=== PATIENT | male | born 1995 | race Caucasian/White ===

== ENCOUNTER 2024-06-29 12:26 | Emergency (ER) | payer SELFPAY ==
[~2024-06-29] VITALS: Ht 167.6 cm; Wt 106.3 kg
[2024-06-29 12:44] VITALS: TEMP 101.2
[2024-06-29 13:08] LABS: COVID AG,FIA SOURCE NASAL SWAB
[2024-06-29 13:12] LABS: APPEARANCE,URINE CLEAR (CLEAR); BILIRUBIN,URINE NEGATIVE (NEGATIVE); COLOR,URINE YELLOW (YELLOW); GLUCOSE, URINE (UA) TRACE mg/dL (NEGATIVE); KETONES,URINE 80-100 mg/dL (NEGATIVE); LEUKOCYTE ESTERASE ,URINE NEGATIVE (NEGATIVE); NITRATE,URINE NEGATIVE (NEGATIVE); OCCULT BLOOD,URINE NEGATIVE (NEGATIVE); PH,URINE 6.5 (5.0-8.0); PROTEIN,URINE 300-600,SEE CONFIRM mg/dL (NEGATIVE); SPECIFIC GRAVITIY, URINE 1.028 (1.003-1.030); SULFOSALICYLIC ACID,URINE 3+ (Negative)
[2024-06-29 13:15] LABS: GLUCOMETER DEV NAME(LOC) ERT.6; GLUCOSE,POINT OF CARE 172 MG/DL (70-110)
[2024-06-29 13:18] LABS: BACTERIA,URINE None Seen /HPF (None Seen); RBC,URINE 0-2 /HPF (0-2); WBC,URINE 0-2 /HPF (0-5)
[2024-06-29] MEDS: ACETAMINOPHEN 500 MG TABLET PO ONE (13:19)
[2024-06-29 13:26] LABS: INFLUENZA TYPE A NEGATIVE FOR TYPE A (NEGATIVE); INFLUENZA TYPE B NEGATIVE FOR TYPE B (NEGATIVE); SARS-COV2 (COVID) ANTIGEN,FIA Negative (Negative)
[2024-06-29 13:58] LABS: BASOPHILS % (AUTO) 0.3 % (0.0-2.0); EOSINOPHILS % (AUTO) 0 % (1.0-6.0); HEMATOCRIT 43.6 % (41-53); HEMOGLOBIN 14.5 g/dL (13.5-17.5); LYMPHOCYTES # (AUTO) 0.5 K/uL (1.0-4.8); LYMPHOCYTES % (AUTO) 7.9 % (22.0-44.0); MEAN CORPUSCULAR HEMOGLOBIN 28.6 pg (26.0-34.0); MEAN CORPUSCULAR HGB CONC 33.3 G/dL (31.0-37.0); MEAN CORPUSCULAR VOLUME 86 fL (80-100); MONOCYTES # (AUTO) 0.6 K/uL (0.1-1.0); MONOCYTES % (AUTO) 9.2 % (2.0-9.0); NEUTROPHILS # (AUTO) 5.4 K/uL (1.8-7.7); NEUTROPHILS % (AUTO) 82.6 % (40.0-70.0); PLATELET COUNT (AUTO) 202 K/uL (150-450); RED BLOOD CELL COUNT(AUTO) 5.09 MIL/uL (4.50-5.90); RED CELL DISTRIBUTION WIDTH 12.8 % (11.5-14.5); WHITE BLOOD COUNT (AUTO) 6.5 K/uL (4.5-11.0)
[2024-06-29] MEDS: IBUPROFEN 600 MG TABLET PO ONE (14:01)
[2024-06-29 14:09] LABS: ANION GAP 10 mmol/L (8-16); CALCIUM, TOTAL 9.1 mg/dL (8.8-10.5); CARBON DIOXIDE 26 mmol/L (22-29); CHLORIDE 97 mmol/L (98-107); GLOMERULAR FILTR. RATE CALC > 60 mL/min (>60); GLUCOSE,RANDOM 164 mg/dL (70-110); POTASSIUM 3.9 mmol/L (3.5-5.1); SODIUM SERUM 133 mmol/L (136-145); UREA NITROGEN, BLOOD 8 mg/dL (7-18)
[2024-06-29 14:17] LABS: LACTIC ACID 1.2 mmol/L (0.4-2.0)
[2024-06-29 14:26] LABS: ALBUMIN 3.4 g/dL (3.4-5.0); BILIRUBIN,DIRECT 0.1 mg/dL (0.00-0.20); BILIRUBIN,TOTAL 0.5 mg/dL (0.1-1.0); TOTAL PROTEIN, SERUM 8.6 g/dL (6.4-8.2)
[2024-06-29] MEDS: SODIUM CHLORIDE 0.9% 2,000 ML IV ONE (14:29)
[2024-06-29 15:07] VITALS: BP 134/77; PULSE 87; RESP 18; O2SAT 98
[2024-06-29] MEDS: MetroNIDAZOLE 250 MG TABLET PO ONE (15:14)
[2024-06-29] MEDS: AMOX TR/POT CLAV 875 MG/125 MG TABLET PO ONE (15:14)
[2024-06-29] MEDS ORDERED: METR500 PO (15:46)
[2024-06-29] MEDS ORDERED: AMOX-457 PO (15:46)
[2024-06-29] MEDS ORDERED: ACET-3385 PO (15:46)
[2024-06-29] MEDS ORDERED: IBUP-1492 PO (15:46)
== END 2024-06-29 16:05 | disposition home or self-care (01) ==
LOC: EMS 12:30
DX: K06.1 Gingival enlargement (principal); R50.9 Fever, unspecified; M79.10 Myalgia, unspecified site; E11.65 Type 2 diabetes mellitus with hyperglycemia; Z20.822 Contact with and (suspected) exposure to COVID-19
CPT/HCPCS: 99284; 96360; 96361; 87426; 80048; 80076; 81001; 82962; 83605; 85025; 87040; 87430; 87804; 36415; J7030; 81002

== ENCOUNTER 2024-07-03 08:40 | Emergency (ER) | payer SELFPAY ==
[~2024-07-03] VITALS: Ht 167.6 cm; Wt 103.0 kg
[~2024-07-03 08:40] MED LIST: ACET-3385 PO; AMOX-457 PO; IBUP-1492 PO; METR500 PO
[2024-07-03 08:44] VITALS: TEMP 98
[2024-07-03 09:22] LABS: BASOPHILS % (AUTO) 0.4 % (0.0-2.0); EOSINOPHILS % (AUTO) 0.6 % (1.0-6.0); HEMOGLOBIN 14.7 g/dL (13.5-17.5); LYMPHOCYTES # (AUTO) 1.6 K/uL (1.0-4.8); LYMPHOCYTES % (AUTO) 26.7 % (22.0-44.0); MEAN CORPUSCULAR HEMOGLOBIN 28.7 pg (26.0-34.0); MEAN CORPUSCULAR HGB CONC 33.4 G/dL (31.0-37.0); MEAN CORPUSCULAR VOLUME 86 fL (80-100); MONOCYTES # (AUTO) 0.6 K/uL (0.1-1.0); MONOCYTES % (AUTO) 9.7 % (2.0-9.0); NEUTROPHILS # (AUTO) 3.6 K/uL (1.8-7.7); NEUTROPHILS % (AUTO) 62.6 % (40.0-70.0); PLATELET COUNT (AUTO) 307 K/uL (150-450); RED BLOOD CELL COUNT(AUTO) 5.13 MIL/uL (4.50-5.90); RED CELL DISTRIBUTION WIDTH 13.1 % (11.5-14.5); WHITE BLOOD COUNT (AUTO) 5.8 K/uL (4.5-11.0)
[2024-07-03 09:24] LABS: ANION GAP 8 mmol/L (8-16); CALCIUM, TOTAL 9.2 mg/dL (8.8-10.5); CARBON DIOXIDE 32 mmol/L (22-29); CHLORIDE 101 mmol/L (98-107); CREATININE 0.61 mg/dL (0.60-1.30); GLOMERULAR FILTR. RATE CALC > 60 mL/min (>60); GLUCOSE,RANDOM 124 mg/dL (70-110); POTASSIUM 3.9 mmol/L (3.5-5.1); SODIUM SERUM 141 mmol/L (136-145); UREA NITROGEN, BLOOD 11 mg/dL (7-18)
[2024-07-03 09:30] VITALS: BP 125/74; PULSE 74; RESP 17; O2SAT 98
[2024-07-03] MEDS ORDERED: CHLO473M6 PO (09:37)
[2024-07-03] MEDS: SODIUM CHLORIDE 0.9% 3,100 ML IV ONE (09:49)
[2024-07-03] MEDS: ONDANSETRON HCL 4 MG/2 ML VIAL IVP ONE (09:49)
[2024-07-03] MEDS: CHLORHEXIDINE GLUCONATE 0.12% 15 ML UDCUP ORAL RINSE PO ONE (09:54)
== END 2024-07-03 09:58 | disposition home or self-care (01) ==
LOC: EMS 08:45
DX: K06.1 Gingival enlargement (principal); E11.9 Type 2 diabetes mellitus without complications
CPT/HCPCS: 99283; 80048; 82962; 85025; 36415; J2405; J7030